=== PATIENT | female | born 1985 | race Caucasian/White ===

== ENCOUNTER 2016-06-30 15:10 | Outpatient (CLI) | payer OTHER ==
[2016-06-30] VITALS (7 sets, daily range): BP systolic 123–138; BP diastolic 79–93
[~2016-06-30] VITALS: Ht 152.4 cm; Wt 81.0 kg
[~2016-06-30 15:10] MED LIST: SYNTHROID25 MCG PO
[2016-06-30] MEDS ORDERED: LABETALOL HCL200 MG PO (16:00)
[2016-06-30] MEDS ORDERED: IRON160 M1 PO (16:01)
[2016-06-30] MEDS ORDERED: PRENATAL TABLE1 EAC3 PO (16:01)
[2016-06-30 16:43] LABS: ADD MIUA? NO; BILIRUBIN SMALL; BLOOD NEGATIVE; COLOR DK YELLOW ((YELLOW)); GLUCOSE (STRIP) NEGATIVE; KETONES TRACE; LEUKOCYTES NEGATIVE; NITRITE NEGATIVE; PH, URINE 6.5 (5-8); PROTEIN (STRIP) TRACE; SPECIFIC GRAVITY 1.024 (1.000-1.030)
[2016-06-30 16:45] LABS: EOSINOPHIL (%) 0.9 % (0-5); EOSINOPHIL COUNT 0.1 K/uL (0-0.3); HEMATOCRIT 34.1 % (36.0-46.0); IMMATURE GRANULOCYTE (%) 1.8 % (0.0-0.7); IMMATURE GRANULOCYTE COUNT 0.2 K/uL; LYMPHOCYTE COUNT 1.2 K/uL (1.0-2.8); MCH 29.7 PG (29.0-34.0); MCHC 33.7 G/DL (30.0-36.0); MCV 88.1 FL (83-99); MEAN PLAT.VOLUME 8.3 uM^3 (9.5-12.4); MONOCYTE (%) 8.2 % (3-12); MONOCYTE COUNT 0.7 K/uL (0-0.8); NEUTROPHIL (%) 75.7 % (45-76); NEUTROPHIL COUNT 6.6 K/uL (1.8-6.4); PLATELET COUNT 165 K/uL (156-360); RBC DIS.WIDTH-CV 13.8 % (11.8-14.6); RBC DIS.WIDTH-SD 44.1 % (39-53); RED BLOOD COUNT 3.87 M/uL (3.80-5.20); WHITE BLOOD COUNT 8.8 K/uL (4.1-10.2)
[2016-06-30 16:54] LABS: ANION GAP 10 MEQ/L (2-14); CHLORIDE 106 MEQ/L (99-109); POTASSIUM 3.9 MEQ/L (3.7-5.4); SAMPLE HEMOLYSIS CHECK 0; SAMPLE ICTERIC CHECK 0; SAMPLE LIPEMIA CHECK 0; SODIUM 136 MEQ/L (136-147); TOTAL BILIRUBIN 0.4 MG/DL (0.0-1.0)
[2016-06-30 17:00] LABS: ALKALINE PHOSPHATASE 135 IU/L (3-129); GFR ESTIMATE (CALCULATED) > 59 mL/min/; GLUCOSE 114 mg/dL (70-99); UREA NITROGEN (BUN) 7 mg/dL (9-23)
== END 2016-06-30 17:25 | disposition home or self-care (01) ==
LOC: LDRP-OP 15:10 → 2WEST 15:11
PROVIDERS: Obstetrics & Gynecology
DX: O99.89 Other specified diseases and conditions complicating pregnancy, childbirth and the puerperium (principal); Z3A.00 Weeks of gestation of pregnancy not specified
CPT/HCPCS: 59025; 80053; 81003; 85025; G0378

== ENCOUNTER 2016-07-05 15:23 | Inpatient (IN) | payer OTHER ==
[~2016-07-05] VITALS: Ht 152.4 cm; Wt 82.1 kg
[~2016-07-05 15:23] MED LIST changes: +IRON160 M1 PO; +LABETALOL HCL200 MG PO; +PRENATAL TABLE1 EAC3 PO
[2016-07-05 16:03] VITALS: BP 146/98
[2016-07-05 16:41] VITALS: BP 170/109
[2016-07-05 16:59] LABS: HEMATOCRIT 35.8 % (36.0-46.0); MCH 31.1 PG (29.0-34.0); MCHC 34.9 G/DL (30.0-36.0); MCV 89.1 FL (83-99); MEAN PLAT.VOLUME 8.6 uM^3 (9.5-12.4); PLATELET COUNT 174 K/uL (156-360); RBC DIS.WIDTH-CV 13.8 % (11.8-14.6); RBC DIS.WIDTH-SD 44.9 % (39-53); RED BLOOD COUNT 4.02 M/uL (3.80-5.20)
[2016-07-05 17:12] VITALS: BP 170/114
[2016-07-05 17:24] LABS: UR CREATININE CONCENTRATION 46.6 MG/DL
[2016-07-05 17:31] LABS: ALKALINE PHOSPHATASE 152 IU/L (3-129); ANION GAP 12 MEQ/L (2-14); CHLORIDE 103 MEQ/L (99-109); GFR ESTIMATE (CALCULATED) > 59 mL/min/; GLUCOSE 83 mg/dL (70-99); SAMPLE HEMOLYSIS CHECK 0; SAMPLE ICTERIC CHECK 0; SAMPLE LIPEMIA CHECK 0; SODIUM 134 MEQ/L (136-147); UREA NITROGEN (BUN) 9 mg/dL (9-23)
[2016-07-05 17:34] LABS: TOTAL BILIRUBIN 0.5 MG/DL (0.0-1.0)
[2016-07-05] MEDS ORDERED: IBUPROFEN800 MG PO (19:15)
[2016-07-05] MEDS ORDERED: PERCOCET 5/31 TABLET PO (19:15)
[2016-07-05 21:31] VITALS: BP 144/92
[2016-07-05 22:33] VITALS: BP 145/90
[2016-07-06] VITALS (8 sets, daily range): BP systolic 117–144; BP diastolic 64–87
[2016-07-06 05:50] LABS: EOSINOPHIL (%) 0.1 % (0-5); HEMATOCRIT 30.1 % (36.0-46.0); IMMATURE GRANULOCYTE (%) 1.2 % (0.0-0.7); IMMATURE GRANULOCYTE COUNT 0.2 K/uL; LYMPHOCYTE COUNT 1.5 K/uL (1.0-2.8); MCH 30.5 PG (29.0-34.0); MCHC 34.2 G/DL (30.0-36.0); MCV 89.1 FL (83-99); MEAN PLAT.VOLUME 8.4 uM^3 (9.5-12.4); MONOCYTE (%) 7.9 % (3-12); MONOCYTE COUNT 1.1 K/uL (0-0.8); NEUTROPHIL (%) 79.6 % (45-76); NEUTROPHIL COUNT 10.9 K/uL (1.8-6.4); PLATELET COUNT 159 K/uL (156-360); RBC DIS.WIDTH-CV 13.9 % (11.8-14.6); RBC DIS.WIDTH-SD 45.2 % (39-53); RED BLOOD COUNT 3.38 M/uL (3.80-5.20); WHITE BLOOD COUNT 13.7 K/uL (4.1-10.2)
[2016-07-07 01:24] VITALS: BP 125/74
[2016-07-07 04:00] VITALS: BP 130/72
[2016-07-07 08:30] VITALS: BP 134/81
== END 2016-07-07 13:35 | disposition home or self-care (01) | DRG 766 ==
LOC: LDRP-OP 15:23 → 2WEST 15:24 → LDRP-OP 08-18 18:10
PROVIDERS: Obstetrics & Gynecology
PROC: 10D00Z1 Extraction of Products of Conception, Low, Open Approach (ICD-10-PCS; principal; 2016-07-05)
DX: O10.02 Pre-existing essential hypertension complicating childbirth (principal); O34.211 Maternal care for low transverse scar from previous cesarean delivery; Z37.0 Single live birth; Z3A.37 37 weeks gestation of pregnancy; O99.824 Streptococcus B carrier state complicating childbirth; O34.43 Maternal care for other abnormalities of cervix, third trimester
CPT/HCPCS: 80053; 82570; 84156; 85025; 85027; 86850; 86900; 86901; J0690; J1100; J1170; J2250; J2274; J2405; J3010; J7120